=== PATIENT | male | born 1980 | race African-American/Black ===

== ENCOUNTER 2016-11-16 22:37 | Emergency (ER) | payer SELFPAY ==
[~2016-11-16] VITALS: Ht 170.2 cm; Wt 69.0 kg
[2016-11-17] MEDS ORDERED: AZITHROMYCIN 500 MG TABLET PO ONE (01:00)
[2016-11-17] MEDS ORDERED: CEFTRIAXONE SODIUM 250 MG/VIAL IM ONE (01:00)
[2016-11-17 01:14] VITALS: BP 114/62
[2016-11-20 04:12] LABS: CHLAMYDIA TRACHOMATIS NAA Negative (Negative); NEISSERIA GONORRHOEAE NAA Positive (Negative)
== END 2016-11-17 03:15 | disposition home or self-care (01) ==
LOC: ER 22:37
DX: Z11.3 Encounter for screening for infections with a predominantly sexual mode of transmission (principal); F17.200 Nicotine dependence, unspecified, uncomplicated
CPT/HCPCS: 87491; 87591; 96372; 99284; J0696